=== PATIENT | male | born 2000 | race Caucasian/White ===

== ENCOUNTER 2024-01-13 21:28 | Emergency (ER) | payer OTHER, SELFPAY ==
--- NOTE | 2024-01-13 21:35 | DI.RAD.S_ITS ---
PROCEDURE: XR KNEE LT 3V INDICATIONS: pain after twisting injury TECHNIQUE: 3 views of the knee were acquired. COMPARISON: None. FINDINGS: Bones: No fractures or dislocations. No suspicious bony lesions. Soft tissues: No joint effusion. No suspicious soft tissue calcifications. IMPRESSION: No acute bony abnormality or significant effusion. Dictated by: Aisha Lees M.D. on 01/13/2024 at 22:26 Approved by: Aisha Lees M.D. on 01/13/2024 at 22:26
[2024-01-13 21:36] VITALS: BP 141/90; PULSE 65; RESP 16; TEMP 36.5; O2SAT 100; BMI 21.6
[2024-01-13 21:54] VITALS: PULSE 64; O2SAT 96
[2024-01-13 22:00] VITALS: BP 126/75; PULSE 61; O2SAT 98
[2024-01-13 22:30] VITALS: BP 126/76; PULSE 58; O2SAT 98
--- NOTE | 2024-01-13 22:40 | ED.LOWEXIN ---
HPI - Extremity Injury (Lower) General Chief Complaint: Extremity Injury, Lower Stated Complaint: lt knee inj Time Seen by Provider: 01/13/24 21:35 Source: patient Mode of arrival: Ambulatory History of Present Illness HPI Narrative: 23-year-old male who is here for evaluation of a left knee injury. He states earlier today he was getting out from underneath a car. He states that as he was standing up he twisted his knee wrong and felt a pop on the inside of his knee. Since that time he has had problems standing on the knee because of discomfort. No prior injury. No other injuries from the event. Describes the pain on the inside of his knee. Related Data Home Medications Medication Instructions Recorded Confirmed albuterol sulfate 90 mcg/actuation ##0 09/26/12 aerosol inhaler (Proventil HFA) Allergies Allergy/AdvReac Type Severity Reaction Status Date / Time PENICILLIN Allergy Mild HIVES Uncoded 01/13/24 21:36 Review of Systems Constitutional Constitutional: Reports system reviewed and no additional complaints, except as documented Musculoskeletal Musculoskeletal: Reports system reviewed and no additional complaints, except as documented Integumentary/Breasts Skin/Breast: Reports system reviewed and no additional complaints, except as documented Neurologic Neurologic: Reports system reviewed and no additional complaints, except as documented Patient History Social History Smoking Status: Never smoker Smoking Status: Never smoker Substance Use Type: does not use Exam Initial Vital Signs Initial Vital Signs: Vital Signs Temperature 97.7 F 01/13/24 21:36 Pulse Rate 65 01/13/24 21:36 Respiratory Rate 16 01/13/24 21:36 Blood Pressure 141/90 H 01/13/24 21:36 Pulse Oximetry 100 01/13/24 21:36 Oxygen Delivery Method Room Air 01/13/24 21:36 Const General: cooperative, comfortable and No ill appearing Skin General: no rashes or lesions noted Neuro Sensory Exam: no sensory deficits noted Extrem Other: Mild effusion to the left knee. Patellar tendon and quadriceps tendon are intact. Patient is able to do a straight leg raise. ACL MCL PCL and LCL intact with functional testing. Does have tenderness to palpation along the medial joint line. Procedures Orthopedic Splinting/Casting Injury #1: Side: left Lower Extremity Injury Location: knee Lower Extremity Immobilizer: Gary wrap Other Orthopedic Equipment: crutches Post splinting neuro exam: no change Post splinting vascular exam: no change Placed by: Nursing Course Orders Ordered: ED Orders 01/13/24 21:35 XR knee LT 3V Stat Vital Signs Vital signs: Vital Signs - 8 hr 01/13/24 21:36 01/13/24 21:54 01/13/24 22:00 Temperature 97.7 F Pulse Rate 65 64 Respiratory Rate 16 Blood Pressure 141/90 H 126/75 Pulse Oximetry 100 96 Oxygen Delivery Method Room Air Room Air 01/13/24 22:00 01/13/24 22:30 01/13/24 22:30 Temperature Pulse Rate 61 58 L Respiratory Rate Blood Pressure 126/76 Pulse Oximetry 98 98 Oxygen Delivery Method Room Air Room Air MDM - Extremity Injury (Lower) Imaging Data Extremity x-ray #1: Radiologist's Impression: PROCEDURE: XR KNEE LT 3V INDICATIONS: pain after twisting injury TECHNIQUE: 3 views of the knee were acquired. COMPARISON: None. FINDINGS: Bones: No fractures or dislocations. No suspicious bony lesions. Soft tissues: No joint effusion. No suspicious soft tissue calcifications. IMPRESSION: No acute bony abnormality or significant effusion. [facility] Narrative Medical decision making narrative: No fractures or dislocation on the x-ray. Low suspicion for septic joint. Low suspicion for large ligament injury. I suspect meniscus injury based on his presentation. Discussed conservative measures for now. Was given crutches in an elastic bandage. Discussed anti-inflammatories and icing. He can walk on his leg as tolerated. If symptoms still persist after several days he may need to talk with his primary doctor about further evaluation and treatment. Patient was given return precautions. He expressed understanding and agreement. Discharge Plan Departure Patient Disposition: Home Clinical Impression: Injury of knee, left Instructions: How To Perform RICE (Rest, Ice, Compress, Elevate), How to Apply an Elastic Wrap on Knee Activity Restrictions/Additional Instructions: X-ray today did not show any signs of fracture so you can walk on your leg as tolerated. Recommend that you use the crutches in the elastic bandage as needed for your comfort. Also recommend that you ice your knee. Keep your leg elevated. Contact your primary care doctor for a follow-up. Return to the emergency department for new symptoms. Prescriptions: No Action albuterol sulfate [Proventil HFA] 90 MCG/PUFF HFA aerosol inhaler Qty: 0 Stand Alone Forms: Patient Portal/API
== END 2024-01-13 23:00 | disposition home or self-care (01) ==
PROVIDERS: Emergency Provider Emergency Medicine
DX: S89.92XA Unspecified injury of left lower leg, initial encounter (principal); X50.1XXA Overexertion from prolonged static or awkward postures, initial encounter
CPT/HCPCS: 73562; 99283